=== PATIENT | female | born 1995 | race Caucasian/White ===

== ENCOUNTER 2018-08-31 16:28 | Emergency (ER) | payer BC ==
--- NOTE | 2018-08-31 16:40 | PDOC ---
History of Present Illness - General Chief Complaint: Injury Stated Complaint: LEFT KNEE INJURY Time Seen by Provider: 08/31/18 16:40 - History of Present Illness Initial Comments: 08/31/18 16:47 Pt presents to the ED complaining of pain after falling down the stairs yesterday. Denies complaints except for pain in the L knee. States that she was able to ambulate with a limp yesterday, but today her pain became worse and it is harder to ambulate. States that her knee feels unstable, and that she is afraid her knee will give out if she steps a certain way. 08/31/18 16:48 Past History - Past Medical History Allergies/Adverse Reactions: Allergies Allergy/AdvReac Type Severity Reaction Status Date / Time amoxicillin [Amoxicillin] Allergy Severe Rash Verified 01/07/13 09:46 ciprofloxacin [From Cipro] Allergy Severe Rash Verified 01/07/13 09:46 ciprofloxacin HCl Allergy Severe Rash Verified 01/07/13 09:46 [From Cipro] Home Medications: Ambulatory Orders Oral Control 1 tab PO DAILY 08/31/18 Anemia: No Asthma: No Cancer: No Cardiac Disorders: No CVA: No COPD: No CHF: No Dementia: No Diabetes: No GI Disorders: No Disorders: No HTN: No Hypercholesterolemia: No Liver Disease: No Seizures: No Thyroid Disease: No - Surgical History Abdominal Surgery: No Appendectomy: No Cardiac Surgery: No Cholecystectomy: No Lung Surgery: No Neurologic Surgery: No Orthopedic Surgery: No - Suicide/Smoking/Psychosocial Hx Smoking History: Never smoked Have you smoked in the past 12 months: No Hx Alcohol Use: No Drug/Substance Use Hx: No Hx Substance Use Treatment: No Review of Systems - Review of Systems Able to Perform ROS?: Yes Comments:: 08/31/18 17:04 Knee: + pain with weight bearing. + small abrasion. Is the patient limited Armenian proficient: No *Physical Exam - Physical Exam Comments: 08/31/18 17:06 gen: alert, NAD L knee: + small abrasion in area of proximal tibial. Able to fully extend and to flex to 75 degrees. No effusion or deformity. + tenderness over the tibial plateau. Able to bear some of her weight on her left leg, and walk 1-2 steps with great difficulty. neurovascularly intact. Medical Decision Making - Medical Decision Making 07/20/19 17:09 Pt presents to the ED complaining of pain in the area of the tibial plateau after fall down the stairs. Given area of her tenderness and the low sensitivity of xray for tibial plateau fractures, will check xrays and CT if xrays are negative. 08/31/18 17:20 08/31/18 19:04 CT knee is negative for fx. Will discharge home with crutches *DC/Admit/Observation/Transfer Diagnosis at time of Disposition: Knee sprain Qualifiers: Encounter type: initial encounter Involved ligament of knee: unspecified ligament Laterality: left Qualified Code(s): S83.92XA - Sprain of unspecified site of left knee, initial encounter - Discharge Dispostion Disposition: HOME Condition at time of disposition: Good Decision to Admit order: No - Referrals Referrals: Fidel Rivas DO [Staff Physician] - - Patient Instructions Printed Discharge Instructions: DI for Knee Sprain Additional Instructions: you came to the ED for pain in your knee. there is no fracture. you should stay off it as much as possible, and use crutches as needed for your comfort. Take motrin for pain. Follow up with Dr. Rivas (orthopedics) if you are still having pain after one week. - Post Discharge Activity
[2018-08-31] MEDS ORDERED: IBUPROFEN 400 MG TABLET (FP) PO ONE ×2 (16:43→17:11)
[2018-08-31 16:47] VITALS: BP 122/89; PULSE 95; TEMP 98.7; BMI 21.0
[2018-08-31] MEDS ORDERED: Pregnancy Control Solution IV ONE (17:13)
== END 2018-08-31 19:15 | disposition home or self-care (01) ==
LOC: FER 16:28
DX: S83.92XA Sprain of unspecified site of left knee, initial encounter (principal); W10.9XXA Fall (on) (from) unspecified stairs and steps, initial encounter; Y93.89 Activity, other specified; Y92.89 Other specified places as the place of occurrence of the external cause
CPT/HCPCS: 73560-TC-LT-FY; 73700-TC-RT; 81025; 99282-25

== ENCOUNTER 2021-09-25 09:41 | Emergency (ER) | payer BC ==
[2021-09-25 09:59] VITALS: BP 122/74; PULSE 72; RESP 18; TEMP 98.3; BMI 21.0
== END 2021-09-25 12:24 | disposition home or self-care (01) ==
LOC: FER 09:41
DX: S09.92XA Unspecified injury of nose, initial encounter (principal); W22.8XXA Striking against or struck by other objects, initial encounter
CPT/HCPCS: 70486-TC; 99284-25